=== PATIENT | male | born 1990 | race African-American/Black ===

== ENCOUNTER 2021-11-30 14:36 | Emergency (ER) | payer MEDICAID ==
[~2021-11-30] VITALS: Ht 182.9 cm; Wt 77.1 kg
[2021-11-30 16:20] LABS: Salicylate < 1.7 mg/dL (2.8-20.0)
[2021-11-30 16:25] LABS: Acetaminophen < 2.0 ug/mL (10-30)
[2021-11-30] MEDS ORDERED: ACETAMINOPHEN 325 MG TAB PO ONE (21:45)
[2021-12-01 23:52] VITALS: BP 148/82
== END 2021-12-01 22:37 | disposition home or self-care (01) ==
LOC: ER 14:36 → EDBD 14:36 → ER 12-01 22:37
DX: R45.851 Suicidal ideations (principal); F17.210 Nicotine dependence, cigarettes, uncomplicated
CPT/HCPCS: 36415; 80320; 80329; 93005

== ENCOUNTER 2022-02-23 20:22 | Emergency (ER) | payer MEDICAID ==
[~2022-02-23] VITALS: Ht 182.9 cm; Wt 86.2 kg
[2022-02-23 20:37] VITALS: BP 148/93
== END 2022-02-23 20:59 | disposition left against medical advice (07) ==
LOC: EDBD 20:22 → ER 20:25
DX: M79.672 Pain in left foot (principal); Z53.21 Procedure and treatment not carried out due to patient leaving prior to being seen by health care provider

== ENCOUNTER 2022-02-24 17:13 | Emergency (ER) | payer MEDICAID ==
[~2022-02-24] VITALS: Ht 185.4 cm; Wt 88.5 kg
[2022-02-24 17:23] VITALS: BP 142/83
== END 2022-02-24 22:22 | disposition left against medical advice (07) ==
LOC: ER 17:13
DX: Z76.0 Encounter for issue of repeat prescription (principal); Z53.21 Procedure and treatment not carried out due to patient leaving prior to being seen by health care provider

== ENCOUNTER 2022-03-18 17:59 | Emergency (ER) | payer MEDICAID ==
[~2022-03-18] VITALS: Ht 177.8 cm; Wt 86.2 kg
[2022-03-18 18:25] VITALS: BP 142/89
== END 2022-03-19 02:24 | disposition left against medical advice (07) ==
LOC: ER 17:59 → EDUNIT# 17:59 → EDBD 17:59 → ER 03-19 02:24
DX: R07.89 Other chest pain (principal); F17.210 Nicotine dependence, cigarettes, uncomplicated
CPT/HCPCS: 71045; 93005

== ENCOUNTER 2022-03-26 08:34 | Emergency (ER) | payer MEDICAID ==
[~2022-03-26] VITALS: Ht 177.8 cm; Wt 72.6 kg
[2022-03-26 10:28] LABS: Basophils # (auto) 0.2 10 ^3/uL (0-0.2); Basophils % (auto) 3.1 % (0.0-2.0); Eosinophils # (auto) 0 10 ^3/uL (0-0.8); Eosinophils % (auto) 0.6 % (0.0-7.0); Hematocrit 45.1 % (41.0-53.0); Hemoglobin 14.9 g/dL (13.5-17.5); Lymphocytes # (auto) 1.8 10 ^3/uL (0.4-5.4); Lymphocytes % (auto) 25.5 % (10.0-50.0); Mean Corpuscular Hemoglobin 27.6 pg (28.0-32.0); Mean Corpuscular Hgb Conc. 33.1 g/dL (32.0-36.0); Mean Corpuscular Volume 83.4 fL (80.0-100.0); Monocytes # (auto) 0.4 10 ^3/uL (0-1.3); Monocytes % (auto) 5.5 % (0.0-12.0); Neutrophils # (auto) 4.5 10 ^3/uL (1.6-8.6); Neutrophils % (auto) 65.3 % (37.0-80.0); Nucleated Red Blood Cells % 0.1 %; Red Blood Cells 5.41 10^6/uL (4.5-5.90); Red Cell Distribution Width 15.5 % (11.8-14.3); White Blood Cell 6.9 10^3/uL (4.4-10.8)
[2022-03-26 10:45] LABS: Potassium 3.7 mmol/L (3.5-5.1)
[2022-03-26 10:52] LABS: Albumin 4.4 g/dL (3.4-5.0); BUN/Creatinine Ratio 8.9; Bilirubin, Total 0.4 mg/dL (0.2-1.0); Total Protein 8.3 g/dL (6.4-8.2)
[2022-03-26] MEDS ORDERED: NAP500T PO (13:23)
[2022-03-26 14:31] VITALS: BP 114/61
== END 2022-03-26 15:15 | disposition home or self-care (01) ==
LOC: EDBD 08:34 → ER 08:34
DX: R07.89 Other chest pain (principal); I10 Essential (primary) hypertension; F17.210 Nicotine dependence, cigarettes, uncomplicated; Z59.00 Homelessness unspecified; Z79.899 Other long term (current) drug therapy
CPT/HCPCS: 36415; 71045; 80053; 84484; 85025; 93005

== ENCOUNTER 2022-04-20 19:38 | Emergency (ER) | payer MEDICAID ==
[~2022-04-20] VITALS: Ht 182.9 cm; Wt 93.4 kg
[~2022-04-20 19:38] MED LIST: NAP500T PO
[2022-04-20 20:42] LABS: Basophils # (auto) 0.1 10 ^3/uL (0-0.2); Basophils % (auto) 1.2 % (0.0-2.0); Eosinophils # (auto) 0.1 10 ^3/uL (0-0.8); Eosinophils % (auto) 1.8 % (0.0-7.0); Hematocrit 41.9 % (41.0-53.0); Hemoglobin 13.6 g/dL (13.5-17.5); Lymphocytes # (auto) 1.7 10 ^3/uL (0.4-5.4); Lymphocytes % (auto) 35.8 % (10.0-50.0); Mean Corpuscular Hgb Conc. 32.5 g/dL (32.0-36.0); Mean Corpuscular Volume 83.2 fL (80.0-100.0); Monocytes # (auto) 0.5 10 ^3/uL (0-1.3); Neutrophils # (auto) 2.4 10 ^3/uL (1.6-8.6); Neutrophils % (auto) 50.2 % (37.0-80.0); Nucleated Red Blood Cells % 0.1 %; Red Blood Cells 5.03 10^6/uL (4.5-5.90); Red Cell Distribution Width 15.3 % (11.8-14.3); White Blood Cell 4.9 10^3/uL (4.4-10.8)
[2022-04-20 20:45] VITALS: BP 145/82
[2022-04-20 20:54] LABS: Salicylate 2.2 mg/dL (2.8-20.0)
[2022-04-20 20:55] LABS: Albumin 3.9 g/dL (3.4-5.0); BUN/Creatinine Ratio 15.7; Potassium 4.1 mmol/L (3.5-5.1)
[2022-04-20 20:58] LABS: Bilirubin, Total 0.2 mg/dL (0.2-1.0); Total Protein 7.6 g/dL (6.4-8.2)
[2022-04-20 21:07] LABS: Acetaminophen < 2.0 ug/mL (10-30)
== END 2022-04-21 09:16 | disposition left against medical advice (07) ==
LOC: EDBD 19:38 → ER 19:38
DX: R45.851 Suicidal ideations (principal); I10 Essential (primary) hypertension; F17.210 Nicotine dependence, cigarettes, uncomplicated; Z59.00 Homelessness unspecified
CPT/HCPCS: 36415; 80053; 80320; 80329; 85025